=== PATIENT | male | born 1965 | race Caucasian/White ===

== ENCOUNTER 2017-06-12 05:11 | Day surgery (SDC) | payer OTHER ==
[~2017-06-12] VITALS: Ht 182.9 cm; Wt 98.0 kg
--- NOTE | ~2017-06-12 | S ---
[facility] [place] [address] SURGICAL PATH RPT PROCEDURE Name: RALPH IRAHETA Room #: DEP [facility] M.R.#: [id number] Admission: 06/12/17 Date of : 67 Discharge: 06/12/17 Report #: [id number] Path Case #: [id number] PATHOLOGY REPORT COLLECTION DATE: 06/12/2017 RECEIVED DATE: 06/12/2017 SUBMITTING PHYS: Dr. Dennis Loya OTHER PHYS: Dr. Sonny Romo SPECIMEN(S) RECEIVED: A.Right lateral epicondylar spur * * * * * * * * * * * * FINAL DIAGNOSIS: Bone and fibrous tissue, right lateral epicondylar spur, resection: - Dense fibrous and tendinous connective tissue with focal calcifications. - Fragments of reactive bone, skeletal muscle as well as cartilaginous tissue. (IUV:db; 06/16/2017) PATHOLOGIST: Alana Edmonds M.D. REPORT ELECTRONICALLY SIGNED BY: Alana Edmonds M.D. DATE/TIME: 06/16/2017 16:06 * * * * * * * * * * * * GROSS PATHOLOGY: Received fresh labeled "Ralph Iraheta, right lateral epicondylar spur" is a 2.0 x 1.6 x 0.4 cm aggregate of boyd-white bony material and pink boyd soft tissue. The specimen is decalcified and submitted entirely in cassette A1. ([facility]; 06/12/2017) CLINICAL HISTORY: Right lateral epicondylar spur. INITIAL CPT CODE(S): A; 34539, 35299 Professional services performed by [facility] at [facility] [address], [place] [address] Technical services performed by [facility] at [address] [place] [id number]. [facility] [address] [place] [address] SURGICAL PATH RPT PROCEDURE Name: RALPH IRAHETA Room #: DEP [facility] Radha#: [id number] Admission: 06/12/17 Date of : 67 Discharge: 06/12/17 Report #: [id number] Path Case #: [id number] [facility] [address] [address] PHONE: [phone] DIRECTOR: Kilo Mckee M.D. * * * END OF REPORT * * *
--- NOTE | ~2017-06-12 | O ---
[facility] [place] [address] OPERATIVE REPORT Name: ANEL IRAHETA Room #: 150-1 [facility]..#: [id number] Admission: 06/12/17 Attend Phys: Dennis Loya MD Discharge: Date of : 67 Report #: [id number] THIS REPORT FOR: //name// CC: Dennis Romo DATE OF SERVICE: 06/12/2017 PREOPERATIVE DIAGNOSIS: Right elbow pain with bony spur and soft tissue mass. POSTOPERATIVE DIAGNOSIS: Bony spur, lateral humeral epicondyle and overlying soft tissue mass, possible ganglion cyst. PROCEDURE: Excision of bony spur and soft tissue mass, right lateral elbow. SURGEON: Dennis Loya MD. INDICATIONS: This 51-year-old gentleman complains of a very painful localized prominence over the lateral aspect of the right elbow. This is about 1 cm over the tip of the lateral epicondyle and seems consistent with some bony prominence and possibly some overlying soft tissue mass which seems to rollover the bony prominence in a painful fashion. He has tried conservative measures without benefit and has elected to go ahead with surgical resection. DESCRIPTION OF PROCEDURE: The patient was taken to the operating room where he was placed under brief general anesthetic. The right arm was meticulously prepped and draped. An arm tourniquet was applied and inflated to 250 mmHg. The area of bony prominence had been carefully marked preoperatively. A small longitudinal skin incision was made over the lateral aspect of the elbow just above the lateral epicondyle. This was carefully extended through subcutaneous tissues. There was an obvious small round mass which was just deep to the fascia. This seems most consistent with a small ganglion cyst, although I did not open the mass and it could be a solid soft tissue mass as well. There was some surrounding scar tissue, which was debrided with this. The small mass was prominent and was rolling over a small bony spur in this region, which was consistent with his preoperative findings and symptoms. Once the soft tissue mass had been excised and passed off the field, the small area of bony spurring was also debrided using a small osteotome and rongeur simply to smooth this back to a more even level. The surrounding bone appeared to be normal. There was no evidence of any other soft tissue or bony abnormality in the region. The raw bony surface was covered with a bone wax to promote hemostasis. The tourniquet was then deflated. Good hemostasis was confirmed. The wound was copiously irrigated. The fascia and deeper muscle layer was reapproximated with 2-0 Monocryl. The subcutaneous tissues were also closed with 2-0 Monocryl. The skin was closed with 4-0 Prolene supplemented with Steri-Strips. A sterile [address] [address] OPERATIVE REPORT Name: ANEL IRAHETA Room #: 150-1 [facility]..#: [id number] Admission: 06/12/17 Attend Phys: Dennis Loya MD Discharge: Date of : 67 Report #: [id number] dressing was applied. The patient was awakened and returned to the recovery room in good condition. By: [id number] Dennis Loya MD /nt
[~2017-06-12 05:11] MED LIST: CIALIS5 MG PO; DYRENIUM50 MG PO; HYDROCHLOROTHIA25 M2 PO; LOPRESSOR50 PO; NEXIUM40 MG PO; ZOCOR20 MG PO; [UNRECOGNIZED DRUG - OTHER] PO
[2017-06-12 07:00] LABS: CALCIUM 9.5 mg/dL (8.5-10.1); CREATININE 1.4 mg/dL (0.7-1.3); POTASSIUM 3.3 mmol/L (3.5-5.1)
[2017-06-12 07:02] VITALS: BP 130/87
[2017-06-12 08:53] VITALS: BP 130/87
== END 2017-06-12 10:16 | disposition home or self-care (01) ==
LOC: TBA 05:11 → OR 05:11 → TBA 05:12 → OR 08:32
PROVIDERS: Anesthesiology
DX: M25.721 Osteophyte, right elbow (principal); M79.89 Other specified soft tissue disorders; E78.00 Pure hypercholesterolemia, unspecified; N40.0 Benign prostatic hyperplasia without lower urinary tract symptoms; Z85.828 Personal history of other malignant neoplasm of skin; Z90.5 Acquired absence of kidney; Z98.890 Other specified postprocedural states; Z87.891 Personal history of nicotine dependence; Z79.899 Other long term (current) drug therapy
CPT/HCPCS: 50010; 50101; 50386; 56525; 56526; 57091; 62110; 62900; 70005